=== PATIENT | female | born 1990 | race Caucasian/White ===

== ENCOUNTER → 2018-04-19 | Outpatient (CLI) | payer OTHER ==
[2018-04-19 15:57] LABS: HCT 35.4 % (34.0-46.0); HGB 12.3 gm/dL (11.4-16.0); MCH 32.1 pg (25.0-35.0); MCHC 34.8 g/dL (31.0-37.0); MCV 92.3 fL (80.0-100.0); Mean Platelet Volume 7.6; Platelet Count 201 k/uL (150-450); RBC 3.84 m/uL (3.80-5.40); RDW 13.7 % (11.5-15.5); WBC 10.7 k/uL (3.8-10.6)
[2018-04-19 16:12] LABS: Glucose 78 mg/dL (74-99)
[2018-04-20 02:05] LABS: HIV AB P24 Non-Reactive (Non-Reactive); HIV P24 AG Non-Reactive (Non-Reactive)
[2018-04-20 08:28] LABS: Toxoplasma Antibody (IgG) <3.0 IU/mL (<7.2); Toxoplasma Antibody (IgM) <3.0 AU/mL (<8.0)
== END | disposition home or self-care (01) ==
LOC: LABWHC1 15:36
PROVIDERS: ATTEND Obstetrics & Gynecology
DX: O26.812 Pregnancy related exhaustion and fatigue, second trimester (principal); Z3A.00 Weeks of gestation of pregnancy not specified
CPT/HCPCS: 36415; 82565; 82947; 85027; 86762; 86777; 86778; 86780; 86850; 86900; 86901; 87340; 87390

== ENCOUNTER → 2018-05-21 | Outpatient (CLI) | payer OTHER ==
[2018-05-21 14:02] LABS: HCT 33.2 % (34.0-46.0); HGB 11.4 gm/dL (11.4-16.0); MCH 32.2 pg (25.0-35.0); MCHC 34.3 g/dL (31.0-37.0); MCV 93.9 fL (80.0-100.0); Mean Platelet Volume 7.8; Platelet Count 175 k/uL (150-450); RBC 3.54 m/uL (3.80-5.40); RDW 13.1 % (11.5-15.5); WBC 12.8 k/uL (3.8-10.6)
== END | disposition home or self-care (01) ==
LOC: LABWHC1 12:29
PROVIDERS: ATTEND Obstetrics & Gynecology
DX: Z34.82 Encounter for supervision of other normal pregnancy, second trimester (principal); Z3A.00 Weeks of gestation of pregnancy not specified
CPT/HCPCS: 36415; 82950; 85027

== ENCOUNTER 2018-07-10 12:01 | Observation (INO) | payer OTHER ==
[2018-07-10] MEDS: LACTATED RINGERS 1,000 ML IV SCH ×3 (13:16→20:00)
[2018-07-10] MEDS: BETAMET ACET-BETAMETH SOD PHOS 6 MG/ML VIAL IM SCH (14:38)
[2018-07-10 15:00] LABS: Appearance,Urine Clear (Clear); Bacteria,Urine Rare /hpf; Bilirubin,Urine Negative (Negative); Blood,Urine Negative (Negative); Color,Urine Light Yellow; Glucose,Urine (UA) Negative (Negative); Ketones,Urine 1+ (Negative); Leukocyte Esterase,Urine Small (Negative); Mucus,Urine Rare /hpf; Nitrite,Urine Negative (Negative); Protein,Urine Negative (Negative); RBC,Urine <1 /hpf (0-5); Specific Gravity,Urine 1.006 (1.001-1.035); Squamous Epithelial Cell,Urine 1 /hpf (0-4); Urobilinogen,Urine <2.0 mg/dL (<2.0)
[2018-07-10] MEDS ORDERED: CALCIUM CARBONATE 500 MG CHEWABLE PO PRN (17:03)
[2018-07-10] MEDS ORDERED: ACETAMINOPHEN TAB 325 MG TAB PO PRN (17:03)
[2018-07-10] MEDS ORDERED: METOCLOPRAMIDE 5 MG/ML 2 ML VIAL IVP PRN (17:03)
[2018-07-10] MEDS ORDERED: MAG HYDROX/AL HYDROX/SIMETH 30 ML CUP PO PRN (17:03)
--- NOTE | 2018-07-10 17:14 | P.HPOB ---
History of Present Illness H&P Date: 07/10/18 Chief Complaint: Contractions This is a 27-year-old female 2 para 1 with an estimated date of confinement of 09/05/2018, estimated gestational age of 32 weeks, who presents to labor and delivery with complaints of contractions since early this morning. She states they started about 6:40 AM and have continued despite laying down and drinking fluids. She did vomit up her vitamins morning. This is the first time she vomited. She did state she has felt a little hot and cold today. She did state she had recently treated for a urinary tract infection. Upon arrival to triage she did also complain of possible leakage of fluid. Her amnisure was negative. fibronectin was collected and was also negative. She was given fluid in triage and did not make any cervical change despite several hours. However her contractions have continued every 2-4 minutes. She does have a history of delivery at 36 weeks and therefore I will admit her for IV hydration and Celestone 2 doses. I will also obtain a obstetrical ultrasound for growth. labs: Hepatitis B surface antigen-negative nonreactive Rubella-immune Syphilis antibody-nonreactive HIV-nonreactive Toxoplasma-negative Random glucose-78 Hemoglobin-12.3 Blood type-O+ Antibody screen-negative Obstetrical history: . History of 1 vaginal delivery at 36-6/7 weeks with no prior history of labor before that time. Gynecologic history: No history of sexual transmitted diseases. Review of Systems Constitutional: Reports chills, Reports malaise Eyes: denies blurred vision, denies pain Ears, nose, mouth and throat: Denies headache, Denies sore throat Cardiovascular: Denies chest pain, Denies shortness of breath Respiratory: Denies cough Gastrointestinal: Reports abdominal pain (Contractions) Genitourinary: Reports pelvic pain, Reports Musculoskeletal: Reports low back pain Neurological: Denies numbness, Denies weakness Psychiatric: Denies anxiety, Denies depression Past Medical History Past Medical History: Asthma History of Any Multi-Drug Resistant Organisms: None Reported Additional Past Surgical History / Comment(s): [place] teeth Past Psychological History: No Psychological Hx Reported Smoking Status: Never smoker Past Alcohol Use History: None Reported Past Drug Use History: None Reported Medications and Allergies Home Medications Medication Instructions Recorded Confirmed Type Albuterol Inhaler [Ventolin Hfa 2 puff INHALATION QID PRN 06/23/14 07/10/18 History Inhaler] Allergies Allergy/AdvReac Type Severity Reaction Status Date / Time No Known Allergies Allergy Verified 07/10/18 12:38 Exam Osteopathic Statement: *. No significant issues noted on an osteopathic structural exam other than those noted in the History and Physical/Consult. Intake and Output 07/10/18 07/10/18 07/10/18 06:59 14:59 22:59 Other: Weight 68.039 kg HEENT: Within normal limits Heart: Regular rate and rhythm Lungs: Clear to auscultation bilaterally Abdomen: Cervix: 1-1/2 cm/thick/-2 station heart tones: Reactive Contractions: Every 2-4 minutes Extremities: Negative Homans Results Abnormal Lab Results - Last 24 Hours (Table) 07/10/18 Range/Units 14:43 Urine Ketones 1+ H (Negative) Ur Leukocyte Esterase Small H (Negative) Urine Bacteria Rare H (None) /hpf Urine Mucus Rare H (None) /hpf Assessment and Plan (1) labor in third trimester without delivery Current Visit: Yes Status: Acute Code(s): O60.03 - LABOR WITHOUT DELIVERY, THIRD TRIMESTER SNOMED Code(s): 4129627 (2) uterine contractions in third trimester, antepartum Current Visit: Yes Status: Acute Code(s): O47.03 - FALSE LABOR BEFORE 37 COMPLETED WEEKS OF GEST, THIRD TRI SNOMED Code(s): 641136751 Plan: Will admit for observation and hydration. Will obtain obstetrical ultrasound. Will give Celestone 2 doses. If she does start to make cervical change, will consider transfer to maternal medicine.
--- NOTE | 2018-07-10 19:04 | US ---
EXAMINATION TYPE: US OB >= 14 wk fetus DATE OF EXAM: 07/10/2018 COMPARISON: None CLINICAL HISTORY: labor Patient states having contractions and dilated to 1 cm. TECHNIQUE: Transabdominal (TA) GESTATIONAL AGE / DATING Physician Established: (32 weeks/0 days) EDC: 09/04/2018 Dates by Current Scan: (21 weeks/4 days) EDC: 09/07/2018 SURVEY IUP: Single PLACENTA: Posterior PREVIA: No Previa APRYL: 20.4 cm Polyhydramnios CERVICAL LENGTH (transabdominal: norm > 3.0cm): 3.3 cm BIOMETRY PRESENTATION: Vertex BPD: 8.1 cm 32 weeks / 3 days HC: 29.7 cm 32 weeks / 6 days AC: 28.1 cm 32 weeks / 1 days FL: 5.9 cm 31 weeks / 0 days ESTIMATED WEIGHT IN GRAMS: 1856 grams ESTIMATED WEIGHT IN LBS/OZ: 4 lbs. 1 oz. WEIGHT PERCENTAGE BASED ON ESTABLISHED DATES: 34.7% HC/AC: 1.1 Normal FL/AC: 21.2 Normal HEART RATE: 167 bpm RHYTHM: Normal Single live IUP measuring 31 weeks 4 days. . IMPRESSION: There is amniotic fluid upper limit of normal. I do not see evidence for polyhydramnios. anatom y was not evaluated on this exam. No complicating process seen.
[2018-07-10 19:14] VITALS: BMI 25.7
[2018-07-11 02:10] VITALS: BP 127/57; PULSE 77; RESP 16; TEMP 98.5
--- NOTE | 2018-07-11 09:51 | P.PN ---
Progress Note - Text Progress Note Date: 07/11/18 Lauren is seen and evaluated. Overall this morning she is doing much better. She relates the contractions began the space back out and she is having very irregularly now. Earlier. She was wondering why she was not started any medications. I did explain fibronectin and risks of labor. We did discuss possibly start her on Procardia but she at this time refuses to go on any medication for the contractions despite being wanting to be on something earlier in the day. We'll watch her very closely today she was to receive second dose of Celestone at approximately 2:30 this afternoon and the plan will be to discharge her to home. All the questions are answered for her at this time.
[2018-07-11] MEDS: LACTATED RINGERS 1,000 ML IV SCH ×2 (11:23→17:28)
[2018-07-11] MEDS ORDERED: PRENATAL VIT-IRON-FOLIC ACID 1 EACH CAP PO SCH (12:00)
[2018-07-11] MEDS: BETAMET ACET-BETAMETH SOD PHOS 6 MG/ML VIAL IM SCH (14:33)
== END 2018-07-11 17:00 | disposition home or self-care (01) ==
LOC: FBPOP 12:01 → 4FBP 17:08
PROVIDERS: ADMIT Obstetrics & Gynecology; ATTEND Obstetrics & Gynecology
DX: O60.03 Preterm labor without delivery, third trimester (principal); Z3A.32 32 weeks gestation of pregnancy; O99.513 Diseases of the respiratory system complicating pregnancy, third trimester; J45.909 Unspecified asthma, uncomplicated; Z87.51 Personal history of pre-term labor
CPT/HCPCS: 59025; 96372 ×2; 93005; 82731; 81001; 76805; G0463; G0378 ×2; J0702 ×2; 96360; 96361; 99214

== ENCOUNTER 2018-07-30 19:11 | Outpatient (CLI) | payer OTHER ==
[2018-07-30 20:39] VITALS: BP 138/69; PULSE 101; RESP 16; TEMP 97.8
--- NOTE | 2018-08-16 08:45 | P.MSEPDOC ---
Presenting Problems - Arrival Data Date of Arrival on Unit: 07/30/18 Time of Arrival on Unit: 19:14 Mode of Transport: Wheelchair - Complaint OB-Reason for Admission/Chief Complaint: Other Comment: pt checked herself, states shes 4cm, hx of PTL Medical History - Information : 2 Para: 1 Term: 0 : 1 Abortions: Spontaneous or Elective: 0 Number of Living Children: 1 - Gestational Age Gestational Age by RANDAL (wks/days): 34 Weeks and 5 Days - History Complications: Prior Comment: 1st delivery at 36wks, PTL at 32 weeks with this Review of Systems - Review of Systems Constitutional: No problems Breast: No problems ENT: No problems Cardiovascular: No problems Respiratory: No problems Gastrointestinal: No problems Genitourinary: No problems Musculoskeletal: No problems Neurological: No problems Skin: No problems Vital Signs - Temperature Temperature: 97.8 F Temperature Source: Temporal Artery Scan - Pulse Right Pulse Rate: 101 Pulse Assessment Method: Pulse Oximetry - Respirations Respiratory Rate: 16 O2 Sat by Pulse Oximetry: 98 - Blood Pressure Right Arm Blood Pressure: 138/69 Blood Pressure Mean: 92 Blood Pressure Source: Automatic Cuff Medical Screen Scoring (Pre) - Cervical Exam Dilation: 1-3 cm = 1 Membranes: Intact - Uterine Contractions Frequency: N/A Duration: N/A Intensity: N/A - Maternal Vital Signs Maternal Temperature: N/A Maternal Blood Pressure: N/A Signs of Preeclampsia: N/A Maternal Respirations: N/A - Pain Assessment Pain Location and Character: Abdomen Pain Scale Used: Numeric (1 - 10) Pain Intensity: 4 Pain Management Goal: 3 Pain Description: *Acute, Aching, Sore Pain Frequency: Intermittent Pain Duration: 1 Pain Duration Units: Days Pain Behavior: Vocalization Pain Aggravating Factors: None Pharmacological Interventions: PRN Medication Non-Pharmacological Interventions: Position/Reposition - Assessment Baseline FHR: 150 Heart Rate - NICHD Category: Category I (Normal) = 0 NST: Reactive Position: N/A Station: N/A - Total Score Total Score (Pre): 1 - Level of Risk Level of Risk: Low (0-5) Physician Notification (Pre) - Physician Notified Physician Notified Date: 07/30/18 Physician Notified Time: 19:46 Physician/Practitioner Notifed:: Dr Westfall - Notification Comment Comment: reported on pts c/o that she checked herself and she was 4cm, hx PTL with this , 36wk delivery with 1st baby. denies any bleeding or leaking , occasional cntrx throughout the day. orders to d/c home with instructions, keep scheduled appt in office, review reasons not to check herself. Disposition - Disposition OB Disposition: Discharge to home Discharge Date: 07/30/18 Discharge Time: 19:52 I agree with the RN Medical Screening Exam: Yes Risk & Benefit of care provided described in d/c instruction: Yes Diagnosis: FALSE LABOR BEFORE 37 COMPLETED WEEKS OF GEST, THIRD TRI
== END 2018-07-30 19:55 | disposition home or self-care (01) ==
LOC: FBPOP 19:11
PROVIDERS: ATTEND Obstetrics & Gynecology
DX: O47.03 False labor before 37 completed weeks of gestation, third trimester (principal); Z3A.34 34 weeks gestation of pregnancy
CPT/HCPCS: 59025; G0463; 99213

== ENCOUNTER 2018-08-12 20:14 | Outpatient (CLI) | payer OTHER ==
[2018-08-12 20:40] VITALS: BP 131/80; PULSE 92; RESP 16; TEMP 97.2
--- NOTE | 2018-08-16 07:27 | P.MSEPDOC ---
Presenting Problems - Arrival Data Date of Arrival on Unit: 08/12/18 Time of Arrival on Unit: 20:14 Mode of Transport: Ambulatory - Complaint OB-Reason for Admission/Chief Complaint: Possible Onset of Labor Medical History - Information : 2 Para: 1 Term: 1 : 0 Abortions: Spontaneous or Elective: 0 Number of Living Children: 1 - Gestational Age Gestational Age by RANDAL (wks/days): 36 Weeks and 5 Days Review of Systems - Review of Systems Constitutional: No problems Breast: No problems ENT: No problems Cardiovascular: No problems Respiratory: No problems Gastrointestinal: No problems Genitourinary: No problems Musculoskeletal: No problems Neurological: No problems Skin: No problems Vital Signs - Temperature Temperature: 97.2 F Temperature Source: Temporal Artery Scan - Pulse Right Brachial Pulse Rate: 92 Pulse Assessment Method: Automatic Cuff - Respirations Respiratory Rate: 16 Oxygen Delivery Method: Room Air O2 Sat by Pulse Oximetry: 98 - Blood Pressure Right Arm Blood Pressure: 131/80 Blood Pressure Mean: 97 Blood Pressure Source: Automatic Cuff Medical Screen Scoring (Pre) - Cervical Exam Dilation: 1-3 cm = 1 Membranes: Intact - Uterine Contractions Frequency: > 5 minutes apart = 1 Duration: N/A Intensity: N/A - Maternal Vital Signs Maternal Temperature: N/A Maternal Blood Pressure: N/A Signs of Preeclampsia: N/A Maternal Respirations: N/A - Pain Assessment Pain Location and Character: Abdomen Pain Scale Used: Numeric (1 - 10) Pain Intensity: 9 Pain Description: *Acute, Cramping Pain Frequency: Intermittent Pain Duration Units: Minutes Pain Behavior: Facial Grimacing Pain Aggravating Factors: Contractions - Assessment Baseline FHR: 155 Heart Rate - NICHD Category: Category I (Normal) = 0 NST: Reactive Position: N/A Station: N/A - Total Score Total Score (Pre): 2 - Level of Risk Level of Risk: Low (0-5) Physician Notification (Pre) - Physician Notified Physician Notified Date: 08/12/18 Physician Notified Time: 20:29 Physician/Practitioner Notifed:: Dr. Patino Spoke With: Dr. Patino New Order Received: Yes - Notification Comment Comment: Dr. Patino in unit and given report on pt in tr. Orders recieved to recheck pt. after 1 hr and to call with results Disposition - Disposition Discharge Date: 08/12/18 Discharge Time: 21:40 I agree with the RN Medical Screening Exam: Yes Risk & Benefit of care provided described in d/c instruction: Yes Diagnosis: FALSE LABOR BEFORE 37 COMPLETED WEEKS OF GEST, THIRD TRI
== END 2018-08-12 21:40 | disposition home or self-care (01) ==
LOC: FBPOP 20:14
PROVIDERS: ATTEND Obstetrics & Gynecology
DX: O47.03 False labor before 37 completed weeks of gestation, third trimester (principal); Z3A.36 36 weeks gestation of pregnancy
CPT/HCPCS: 59025; G0463; 99213

== ENCOUNTER 2018-08-13 22:29 | Outpatient (CLI) | payer OTHER ==
[2018-08-13 22:58] VITALS: BP 129/78; PULSE 88; RESP 18; TEMP 97.7
[2018-08-14 00:40] LABS: Amphetamine Screen,Urine Not Detected (NotDetected); Barbiturate Screen,Urine Not Detected (NotDetected); Benzodiazepines Screen,Urine Not Detected (NotDetected); Cocaine Screen,Urine Not Detected (NotDetected); Methadone Screen, Urine Not Detected (NotDetected); Opiate Screen,Urine Not Detected (NotDetected); Oxycodone Screen, Urine Not Detected (NotDetected); Phencyclidine Screen,Urine Not Detected (NotDetected); Tricyclic Antidepressant,Urine Not Detected (NotDetected); Urn Cannabinoid Scrn Detected (NotDetected)
--- NOTE | 2018-08-14 01:29 | P.MSEPDOC ---
Presenting Problems - Arrival Data Date of Arrival on Unit: 08/13/18 Time of Arrival on Unit: 22:29 Mode of Transport: Ambulatory - Complaint OB-Reason for Admission/Chief Complaint: Possible Onset of Labor Comment: 2030 2 min apart Medical History - Information : 2 Para: 1 Term: 0 : 1 Abortions: Spontaneous or Elective: 0 Number of Living Children: 1 - Gestational Age Gestational Age by RANDAL (wks/days): 36 Weeks and 5 Days - History Complications: Prior Review of Systems - Review of Systems Constitutional: No problems Breast: No problems ENT: No problems Cardiovascular: No problems Respiratory: No problems Gastrointestinal: No problems Genitourinary: No problems Musculoskeletal: No problems Neurological: No problems Skin: No problems Vital Signs - Temperature Temperature: 97.7 F Temperature Source: Temporal Artery Scan - Pulse Right Brachial Pulse Rate: 88 Pulse Assessment Method: Automatic Cuff - Respirations Respiratory Rate: 18 Oxygen Delivery Method: Room Air - Blood Pressure Right Arm Blood Pressure: 129/78 Blood Pressure Mean: 95 Blood Pressure Source: Automatic Cuff Medical Screen Scoring (Pre) - Cervical Exam Dilation: 1-3 cm = 1 Effacement: More than 50% = 2 Membranes: Intact - Uterine Contractions Frequency: > or = 36 weeks =2 Duration: > 40 seconds = 2 Intensity: N/A - Maternal Vital Signs Maternal Temperature: N/A Maternal Blood Pressure: N/A Signs of Preeclampsia: N/A Maternal Respirations: N/A - Pain Assessment Pain Location and Character: Abdomen Pain Scale Used: Numeric (1 - 10) Pain Intensity: 9 Pain Description: *Acute, Tightness Pain Radiation Location: vaginal Pain Frequency: Intermittent Pain Duration: 2 Pain Duration Units: Hours Pain Behavior: Crying, Facial Grimacing, Guarding Pain Aggravating Factors: Contractions - Maternal Trauma Maternal Trauma: N/A - Assessment Baseline FHR: 145 Heart Rate - NICHD Category: Category I (Normal) = 0 NST: Reactive Position: N/A Station: N/A - Total Score Total Score (Pre): 7 - Level of Risk Level of Risk: Medium (6-9) Medical Screen Scoring (Post) - Cervical Exam Dilation: 1-3 cm = 1 Effacement: More than 50% = 2 Membranes: Intact - Uterine Contractions Frequency: > or = 36 weeks =2 Duration: > 40 seconds = 2 Intensity: N/A - Assessment Heart Rate: 145 Heart Rate - NICHD Category: Category I (Normal) = 0 NST: Reactive Position: N/A Station: N/A - Total Score Total Score (Post): 7 - Post Treatment Level of Risk Post Treatment Level of Risk: Medium (6-9) Physician Notification (Post) - Physician Notified Physician Notified Date: 08/14/18 Physician Notified Time: 00:13 Spoke With: Taniya Cobb Order Received: Yes (discharge with instruction) - Notification Comment Comment: no cervical change, concentrated urine, pt refuses to drink water, has appt with Khoi. Disposition - Disposition OB Disposition: Discharge to home, Written follow up instructions reviewed Discharge Date: 08/14/18 Discharge Time: 00:15 I agree with the RN Medical Screening Exam: Yes Risk & Benefit of care provided described in d/c instruction: Yes Diagnosis: FALSE LABOR AT OR AFTER 37 COMPLETED WEEKS OF GESTATION (Please see the oblique this patient's triage visit. patient presented complaining of contractions and had no cervical change despite persistent monitoring. patient doesn't appear to be dehydrated however states that she wants to be in labor and refuses to drink water. heart tones were reassuring and reactive. patient is instructed to return to labor and delivery if she felt the contractions were stronger more regular. of note her urine tox screen was positive for THC.)
== END 2018-08-14 00:15 | disposition home or self-care (01) ==
LOC: FBPOP 22:29
PROVIDERS: ATTEND Obstetrics & Gynecology
DX: O47.1 False labor at or after 37 completed weeks of gestation (principal); Z3A.36 36 weeks gestation of pregnancy
CPT/HCPCS: 59025; 84112; 80306; G0463; 99213

== ENCOUNTER 2018-08-18 14:13 | Inpatient (IN) | payer OTHER ==
[2018-08-18] MEDS ORDERED: METHYLERGONOVINE 0.2 MG/ML 1 ML AMP IM PRN (15:26)
[2018-08-18] MEDS ORDERED: CARBOPROST TROMETHAMINE 250 MCG/ML 1 ML AMP IM PRN (15:26)
[2018-08-18] MEDS ORDERED: OXYTOCIN 10 UNIT/ML 1 ML VIAL IM PRN (15:26)
[2018-08-18] MEDS ORDERED: TERBUTALINE 1 MG/ML VIAL SQ PRN (15:26)
[2018-08-18] MEDS ORDERED: LIDOCAINE 0.5% (PF) 5 MG/ML (50 ML SDV) SQ PRN (15:26)
[2018-08-18] MEDS: LACTATED RINGERS 1,000 ML IV SCH ×3 (15:55→20:19)
[2018-08-18 16:11] LABS: Basophils % (A) 0 %; Eosinophils % (A) 0 %; HCT 36.9 % (34.0-46.0); HGB 12.2 gm/dL (11.4-16.0); Lymphocytes # (A) 1.7 k/uL (1.0-4.8); Lymphocytes % (A) 10 %; MCH 28.9 pg (25.0-35.0); MCHC 33.1 g/dL (31.0-37.0); MCV 87.2 fL (80.0-100.0); Mean Platelet Volume 8.1; Monocytes # (A) 0.6 k/uL (0-1.0); Monocytes % (A) 3 %; Neutrophils # (A) 14.6 k/uL (1.3-7.7); Neutrophils % (A) 86 %; Platelet Count 200 k/uL (150-450); Poikilocytosis Slight; RBC 4.23 m/uL (3.80-5.40); RDW 14.2 % (11.5-15.5)
[2018-08-18 16:13] VITALS: BMI 26.6
[2018-08-18 16:20] LABS: Amphetamine Screen,Urine Not Detected (NotDetected); Barbiturate Screen,Urine Not Detected (NotDetected); Benzodiazepines Screen,Urine Not Detected (NotDetected); Cocaine Screen,Urine Not Detected (NotDetected); Methadone Screen, Urine Not Detected (NotDetected); Opiate Screen,Urine Not Detected (NotDetected); Oxycodone Screen, Urine Not Detected (NotDetected); Phencyclidine Screen,Urine Not Detected (NotDetected); Tricyclic Antidepressant,Urine Not Detected (NotDetected); Urn Cannabinoid Scrn Detected (NotDetected)
[2018-08-18] MEDS ORDERED: SODIUM CHLORIDE 0.9% 100 ML BAG ONE (17:43)
[2018-08-18] MEDS ORDERED: fentaNYL (PF) 50 MCG/ML 5 ML AMP ONE (17:43)
[2018-08-18] MEDS ORDERED: ROPIVACAINE 5MG/ML 20ML VIAL ONE (17:43)
[2018-08-18] MEDS: OXYTOCIN 20 UNITS/1000 ML NS 1,000 ML IV SCH (19:30)
--- NOTE | 2018-08-18 21:38 | P.HPOB ---
History of Present Illness H&P Date: 08/18/18 Chief Complaint: Normal labor 27-year-old presents at 37 weeks and 3 days and labor. Her cervix changed in triage from 4 cm to 5 cm dilated, 50% effaced, and -2 station. She was luisana every 2-5 minutes. heart tones 130 135 with moderate variability and reactive. Review of Systems All systems: negative Constitutional: Denies chills, Denies fever Eyes: denies blurred vision, denies pain Ears, nose, mouth and throat: Denies headache, Denies sore throat Cardiovascular: Denies chest pain, Denies shortness of breath Respiratory: Denies cough Gastrointestinal: Denies abdominal pain, Denies diarrhea, Denies nausea, Denies vomiting Genitourinary: Denies dysuria, Denies hematuria Musculoskeletal: Denies myalgias Integumentary: Denies pruritus, Denies rash Neurological: Denies numbness, Denies weakness Psychiatric: Denies anxiety, Denies depression Endocrine: Denies fatigue, Denies weight change Past Medical History Past Medical History: Asthma Additional Past Medical History / Comment(s): back pain from epidural 5 months ago. Obstetric history: First was a vaginal delivery. This is her second and she's had care with Dr. Sorto. Her blood type is O+, abs negative, rubella immune, hepatitis B negative, GBS negative, HIV nonreactive. History of Any Multi-Drug Resistant Organisms: None Reported Past Surgical History: No Surgical Hx Reported Additional Past Surgical History / Comment(s): [place] teeth Past Anesthesia/Blood Transfusion Reactions: No Reported Reaction Past Psychological History: No Psychological Hx Reported Smoking Status: Never smoker Past Alcohol Use History: None Reported Past Drug Use History: Marijuana - Past Family History Mother Family Medical History: No Reported History Medications and Allergies Home Medications Medication Instructions Recorded Confirmed Type RX: Albuterol Inhaler [Ventolin 2 puff INHALATION QID PRN 06/23/14 08/18/18 History Hfa Inhaler] Pnv,Calcium 72/Iron/Folic Acid 1 each PO DAILY 07/30/18 08/18/18 History [ Plus Tablet] Allergies Allergy/AdvReac Type Severity Reaction Status Date / Time No Known Allergies Allergy Verified 08/18/18 14:28 Exam Osteopathic Statement: *. No significant issues noted on an osteopathic structural exam other than those noted in the History and Physical/Consult. Vital Signs Temp Pulse Resp BP Pulse Ox 08/18/18 14:30 97.7 F 120 H 18 120/83 99 Intake and Output 08/18/18 08/18/18 08/18/18 06:59 14:59 22:59 Other: Weight 70.307 kg 70.307 kg Heart: Regular rate and rhythm Lungs: Clear to auscultation bilaterally Abdomen: Soft, nontender Extremities: Negative Homans sign Results Result Diagrams: 08/18/18 15:49 Abnormal Lab Results - Last 24 Hours (Table) 08/18/18 08/18/18 Range/Units 15:45 15:49 WBC 17.0 H (3.8-10.6) k/uL Neutrophils # 14.6 H (1.3-7.7) k/uL U Marijuana (THC) Screen Detected H (NotDetected) Assessment and Plan (1) Normal labor Current Visit: Yes Status: Acute Code(s): O80 - ENCOUNTER FOR FULL-TERM UNCOMPLICATED DELIVERY; Z37.9 - OUTCOME OF DELIVERY, UNSPECIFIED SNOMED Code(s ): 04185979 Plan: 1. Admit to family place 2. Expectant management 3. Anticipate normal vaginal delivery
[2018-08-18] MEDS ORDERED: diphenhydrAMINE 50 MG/ML 1 ML VIAL IVP PRN ×2 (21:40)
[2018-08-18] MEDS ORDERED: ZOLPIDEM 5 MG TAB PO PRN (21:40)
[2018-08-18] MEDS ORDERED: LANOLIN CREAM 5 GM TUBE TOPICAL PRN (21:40)
[2018-08-18] MEDS ORDERED: diphenhydrAMINE 25 MG CAP PO PRN (21:40)
[2018-08-18] MEDS ORDERED: BENZOCAINE/MENTHOL SPRAY 1 GM/SPRAY AEROSOL TOPICAL PRN (21:40)
[2018-08-18] MEDS ORDERED: SIMETHICONE 80 MG CHEWABLE PO PRN (21:40)
[2018-08-18] MEDS ORDERED: diphenhydrAMINE 50 MG CAP PO PRN (21:40)
[2018-08-18] MEDS ORDERED: HYDROCORTISONE 2.5% RECTAL CREAM 30 GM TUBE RECTAL PRN (21:40)
--- NOTE | 2018-08-18 21:40 | P.PROBDLV ---
Vaginal Delivery Note - . Vaginal Delivery Note: 27-year-old presents at 37 weeks and 3 days and labor. Her cervix changed in triage from 4 cm to 5 cm dilated, 50% effaced, and -2 station. She was luisana every 2-5 minutes. heart tones 130 135 with moderate variability and reactive. When she was admitted to room she did get an epidural. Amniotomy was performed at 1820, clear fluid noted. After an hour her cervix did not change and contractions had spaced out to every 3-5 minutes, Pitocin augmentation was started. Her cervix was completely dilated at 2120, she pushed, and delivered a viable male infant over intact perineum under epidural anesthesia at 2124. Head delivered OA, anterior shoulder delivered gentle downward guidance followed by posterior shoulder and rest of body. Nose and mouth bulb suctioned, cord clamped and cut, placed on mother's abdomen. Apgars 7, 9, weight 6 pounds. Placenta delivered spontaneously, intact with three-vessel cord at 2126. Vagina, cervix, and perineum were inspected. First-degree midline laceration was repaired with 3-0 Vicryl. Estimated blood loss 150 mL. Mother and baby in stable condition.
[2018-08-18] MEDS ORDERED: OXYTOCIN 20 UNITS/1000 ML NS 1,000 ML IV SCH (21:45)
[2018-08-18] MEDS: WITCH HAZEL 1 EACH MED..PAD TOPICAL PRN (21:49)
[2018-08-19] MEDS: ACETAMINOPHEN TAB 325 MG TAB PO PRN ×2 (01:01→16:33)
[2018-08-19] MEDS: IBUPROFEN 600 MG TAB PO PRN ×2 (02:32→12:45)
[2018-08-19] MEDS: SENNOSIDES-DOCUSATE SODIUM 1 EACH TAB PO SCH ×2 (08:00→21:21)
--- NOTE | 2018-08-19 08:53 | P.DS ---
Providers Date of admission: 08/18/18 15:27 Expected date of discharge: 08/19/18 Attending physician: Kelechi Westfall Primary care physician: Stated None Hospital Course: Lauren is doing very well day 1. She is ambulating, voiding, and she is tolerating her diet. She voices no were complaints and requests discharged home tonight. Prescription for Motrin sent to her pharmacy. All the questions are answered for her prior to discharge. She is stable for discharge this time. Her heart is regular, lungs are clear, extremities are without pain with minimal edema. Abdomen soft lochia is reported be light, and uterus is firm below the umbilicus. Assessment day 1. Plan discharged home follow up with me in 6 weeks. Patient Condition at Discharge: Good Plan - Discharge Summary New Discharge Prescriptions: New Ibuprofen [Motrin] 600 mg PO Q6HR PRN #30 tab PRN Reason: Pain No Action Albuterol Inhaler [Ventolin Hfa Inhaler] 2 puff INHALATION QID PRN PRN Reason: Bronchospasm Pnv,Calcium 72/Iron/Folic Acid [ Plus Tablet] 1 each PO DAILY Discharge Medication List Albuterol Inhaler [Ventolin Hfa Inhaler] 2 puff INHALATION QID PRN 06/23/14 [ History] Pnv,Calcium 72/Iron/Folic Acid [ Plus Tablet] 1 each PO DAILY 07/30/18 [ History] Ibuprofen [Motrin] 600 mg PO Q6HR PRN #30 tab 08/19/18 [Rx] Follow up Appointment(s)/Referral(s): Kelechi Westfall DO [Doctor of Osteopathic Medicine] - 6 Weeks Activity/Diet/Wound Care/Special Instructions: No heavy lifting, limit stairs and driving, and pelvic rest. If any high temperatures, heavy bleeding, or severe pain call my office Discharge Disposition: HOME SELF-CARE
[2018-08-19 17:31] VITALS: BP 122/78; PULSE 80; RESP 16; TEMP 97.9
[2018-08-19] MEDS: OXYTOCIN 20 UNITS/1000 ML NS 1,000 ML IV SCH (20:02)
[2018-08-19] MEDS: WITCH HAZEL 1 EACH MED..PAD TOPICAL PRN (21:21)
== END 2018-08-19 22:04 | disposition home or self-care (01) | DRG 807 ==
LOC: FBPOP 14:13 → 4FBP 15:27
PROVIDERS: ADMIT Obstetrics & Gynecology; ATTEND Obstetrics & Gynecology
PROC: 10E0XZZ Delivery of Products of Conception, External Approach (ICD-10-PCS; principal; 2018-08-18)
PROC: 0HQ9XZZ Repair Perineum Skin, External Approach (ICD-10-PCS; 2018-08-18)
PROC: 00HU33Z Insertion of Infusion Device into Spinal Canal, Percutaneous Approach (ICD-10-PCS; 2018-08-18)
PROC: 3E0R3BZ Introduction of Anesthetic Agent into Spinal Canal, Percutaneous Approach (ICD-10-PCS; 2018-08-18)
DX: O99.52 Diseases of the respiratory system complicating childbirth (principal); Z37.0 Single live birth; J45.909 Unspecified asthma, uncomplicated; O70.0 First degree perineal laceration during delivery; Z3A.37 37 weeks gestation of pregnancy
CPT/HCPCS: 59025; 80306; 85025; 86850; 86900; 86901; 99213

== ENCOUNTER → 2018-10-31 | Outpatient (CLI) | payer OTHER ==
[2018-10-31 15:04] LABS: Basophils % (A) 0 %; Eosinophils # (A) 0.1 k/uL (0-0.7); Eosinophils % (A) 1 %; HCT 39.9 % (34.0-46.0); Lymphocytes # (A) 1.7 k/uL (1.0-4.8); Lymphocytes % (A) 21 %; MCH 28.5 pg (25.0-35.0); MCHC 32.6 g/dL (31.0-37.0); MCV 87.4 fL (80.0-100.0); Mean Platelet Volume 6.9; Monocytes # (A) 0.4 k/uL (0-1.0); Monocytes % (A) 5 %; Neutrophils # (A) 5.7 k/uL (1.3-7.7); Neutrophils % (A) 71 %; Platelet Count 223 k/uL (150-450); RBC 4.57 m/uL (3.80-5.40); RDW 13.9 % (11.5-15.5)
== END | disposition home or self-care (01) ==
LOC: LABPAT 13:46
PROVIDERS: ATTEND Obstetrics & Gynecology
DX: Z01.812 Encounter for preprocedural laboratory examination (principal)
CPT/HCPCS: 36415; 85025

== ENCOUNTER 2018-11-04 05:52 | Day surgery (SDC) | payer OTHER ==
[2018-10-30 15:31] VITALS: BMI 24.0
[~2018-11-04 05:52] MED LIST: Pre Op ABX Message 1 EACH MISC MISCELLANE ONE
[2018-11-04] MEDS ORDERED: ONDANSETRON 4 MG/2 ML VIAL IVP ONE (06:25)
[2018-11-04] MEDS ORDERED: LACTATED RINGERS 1,000 ML IV SCH (06:25)
[2018-11-04] MEDS ORDERED: SCOPOLAMINE 1.5MG/72HR PATCH TRANSDERM ONE (06:25)
[2018-11-04] MEDS ORDERED: DEXAMETHASONE SOD PHOSPHATE 10 MG/ML 1 ML VIAL IV ONE (06:25)
[2018-11-04] MEDS ORDERED: MIDAZOLAM (PF) 2 MG/2 ML VIAL IV PRN (06:25)
[2018-11-04] MEDS ORDERED: LACTATED RINGERS 1,000 ML IV ONE (06:52)
[2018-11-04] MEDS ORDERED: LIDOCAINE 1% 20 ML VIAL (10MG/ML) FOR IV START INTRADERMA ONE (06:54)
[2018-11-04] MEDS ORDERED: MIDAZOLAM 2 MG/2 ML VIAL ONE (07:41)
[2018-11-04] MEDS ORDERED: SUCCINYLCHOLINE CHLORIDE 100 MG/5 ML SYR IV ONE (07:41)
[2018-11-04] MEDS ORDERED: NEOSTIGMINE 1 MG/ML 10 ML VIAL ONE (07:41)
[2018-11-04] MEDS ORDERED: LIDOCAINE 1% INJ 10MG/ML (20 ML MDV) ONE (07:41)
[2018-11-04] MEDS ORDERED: fentaNYL (PF) 50 MCG/ML 2 ML AMP ONE (07:41)
[2018-11-04] MEDS ORDERED: GLYCOPYRROLATE 0.2 MG/ML 2 ML VIAL ONE (07:41)
[2018-11-04] MEDS ORDERED: KETOROLAC 30 MG/ML 1 ML VIAL ONE (07:41)
[2018-11-04] MEDS ORDERED: PROPOFOL 10 MG/ML 20 ML VIAL IV ONE (07:41)
[2018-11-04] MEDS ORDERED: ROCURONIUM BROMIDE 10 MG/ML 10 ML VIAL IV ONE (07:41)
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
[2018-11-04] MEDS ORDERED: BUPIVACAINE (PF) 0.25% 30 ML VIAL SQ ONE (08:05)
--- NOTE | 2018-11-04 08:17 | P.OP ---
Date of Procedure: 11/04/18 Preoperative Diagnosis: Family planning Postoperative Diagnosis: Same Procedure(s) Performed: Laparoscopic tubal occlusion with Filshie clips Anesthesia: POOL Surgeon: Kelechi Westfall Estimated Blood Loss (ml): 5 IV fluids (ml): 500 Urine output (ml): 20 Pathology: none sent Condition: stable Disposition: same day Operative Findings: Normal female pelvic anatomy Description of Procedure: Patient states the operating suite where a general anesthetic was found be adequate. She was prepped and draped in the normal sterile fashion and placed in dorsal lithotomy position. Initially a speculum was inserted into the vagina and the anterior lip of the cervix identified and grasped with a single- tooth tenaculum. Red rubber cath was then used to drain the bladder of urine and other instruments removed from the vagina. Gloves were changed and attention was turned to the abdominal portion procedure where 2 mL of quarter percent Marcaine was injected periumbilically. Through this injected anesthetic a 5 mm skin incision was made and through this incision under direct visualization with an optical trocar and sleeve the camera was inserted. Once peritoneal placement was assured gas was left fully insufflate the abdomen and patient was then placed in steep Trendelenburg position. Second 8 mm skin incision was then made 2 cm above the pubic symphysis in the midline. Through this incision under direct visualization with an optical trocar second port and sleeve were inserted without difficulty. Once this was accomplished with gas fully insufflate the abdomen and attention was turned to the pelvic region. Uterus was then elevated and tipped slightly to the left-hand side right fallopian tubes identified and grasped with a Filshie clip 2 cm from uterine cornu and then tipped to the right side and left fallopian tube in similar fashion was identified grasped with Filshie clip 2 cm from uterine cornu. Once this was accomplished observations pelvis were done. Normal female pelvic anatomy is noted. There is no bleeding from the mesosalpinx. The remainder the pelvis and abdomen are grossly unremarkable therefore all instruments removed and gas allowed to expel from the abdomen. 5 deep breaths were provided during this process. Once this was accomplished trochars removed and 4 -0 Vicryl was used to close incision subcuticular E and remaining 6 mL of 1% Marcaine was injected around these incisions. Instruments were were then removed from the vagina. Sponge, lap, needle counts were all correct 2. Patient was then taken to the recovery room in stable and satisfactory condition. Plan - Discharge Summary New Discharge Prescriptions: No Action Albuterol Inhaler [Ventolin Hfa Inhaler] 2 puff INHALATION QID PRN PRN Reason: Bronchospasm Discharge Medication List Albuterol Inhaler [Ventolin Hfa Inhaler] 2 puff INHALATION QID PRN 06/23/14 [ History]
[2018-11-04] MEDS: HYDROmorphone 0.5 MG/0.5 ML SYRINGE IVP PRN ×3 (08:28→08:57)
[2018-11-04 08:32] VITALS: RESP 16; TEMP 97
[2018-11-04] MEDS ORDERED: HYDROcodone/APAP 5-325MG 1 EACH TAB PO ONE (09:28)
[2018-11-04 09:38] VITALS: BP 131/86; PULSE 65
== END 2018-11-04 10:33 | disposition home or self-care (01) ==
LOC: OR 05:52
PROVIDERS: ATTEND Obstetrics & Gynecology
DX: Z30.2 Encounter for sterilization (principal); J45.909 Unspecified asthma, uncomplicated; M19.90 Unspecified osteoarthritis, unspecified site; F41.9 Anxiety disorder, unspecified
CPT/HCPCS: 81025; 58671; J2250; J1100; J2710; J2405; J2001; J3010; J1885; J0330; J2704; J1170

== ENCOUNTER → 2020-05-05 | Outpatient (CLI) | payer OTHER ==
--- NOTE | 2020-05-06 07:06 | US ---
EXAMINATION TYPE: US pelvic complete DATE OF EXAM: 05/05/2020 COMPARISON: US 2013 CLINICAL HISTORY: R10.2 pelvic pain, N93.8 Dysfuntional bleeding. Patients states she had a tubal lig ation about 7 months ago and has had pelvic pain on and off since then, 2, para 2. TECHNIQUE: . Transabdominal sonographic images of the pelvis were acquired. Date of LMP: 04/24/2020 EXAM MEASUREMENTS: Uterus: 8.9 x 4.8 x 5.2 cm Endometrial Stripe: 1.2 cm Right Ovary: 3.7 x 2.3 x 2.4 cm Left Ovary: 3.2 x 1.3 x 1.6 cm 1. Uterus: anteverted 2. Endometrium: appears thickened for patient's LMP 3. Right Ovary: wnl 4. Left Ovary: wnl 5. Bilateral Adnexa: wnl 6. Posterior cul-de-sac: wnl IMPRESSION: 1. Endometrium measures 1.2 cm and appears thickened correlate for endometrial pathology.
== END | disposition home or self-care (01) ==
LOC: RADUSWWP 15:45
PROVIDERS: ATTEND Obstetrics & Gynecology
DX: R93.89 Abnormal findings on diagnostic imaging of other specified body structures (principal); N93.8 Other specified abnormal uterine and vaginal bleeding
CPT/HCPCS: 76856

== ENCOUNTER 2020-05-20 11:28 | Emergency (ER) | payer OTHER ==
[2020-05-20 11:42] VITALS: TEMP 98.1
[2020-05-20 12:05] LABS: Appearance,Urine Clear (Clear); Bacteria,Urine Rare /hpf; Bilirubin,Urine Negative (Negative); Blood,Urine Large (Negative); Color,Urine Light Yellow; Glucose,Urine (UA) Negative (Negative); Ketones,Urine Negative (Negative); Leukocyte Esterase,Urine Trace (Negative); Nitrite,Urine Negative (Negative); PH, Urine 6.5 (5.0-8.0); Protein,Urine Negative (Negative); RBC,Urine 1 /hpf (0-5); Specific Gravity,Urine 1.003 (1.001-1.035); Squamous Epithelial Cell,Urine 3 /hpf (0-4); Urobilinogen,Urine <2.0 mg/dL (<2.0); WBC,Urine 1 /hpf (0-5)
[2020-05-20 12:22] LABS: Basophils # (A) 0.1 k/uL (0-0.2); Basophils % (A) 1 %; Eosinophils # (A) 0.2 k/uL (0-0.7); Eosinophils % (A) 3 %; HGB 14.2 gm/dL (11.4-16.0); Lymphocytes # (A) 1.3 k/uL (1.0-4.8); Lymphocytes % (A) 19 %; MCH 30.7 pg (25.0-35.0); MCHC 33.1 g/dL (31.0-37.0); MCV 92.8 fL (80.0-100.0); Mean Platelet Volume 8.1; Monocytes # (A) 0.4 k/uL (0-1.0); Monocytes % (A) 6 %; Neutrophils # (A) 4.7 k/uL (1.3-7.7); Neutrophils % (A) 71 %; Platelet Count 211 k/uL (150-450); RBC 4.63 m/uL (3.80-5.40); RDW 12.3 % (11.5-15.5); WBC 6.6 k/uL (3.8-10.6)
[2020-05-20 12:31] LABS: ALT 11 U/L (4-34); AST 19 U/L (14-36); African American GFR (CKD) >90 (>60 ml/min/1.73 sqM); Albumin 4.5 g/dL (3.5-5.0); Alkaline Phosphatase 65 U/L (38-126); Anion Gap 7 mmol/L; Blood Urea Nitrogen 8 mg/dL (7-17); Calcium 9.2 mg/dL (8.4-10.2); Carbon Dioxide 25 mmol/L (22-30); Chloride 108 mmol/L (98-107); Glucose 92 mg/dL (74-99); Non-African American GFR(CKD) >90 (>60 ml/min/1.73 sqM); Potassium 4.4 mmol/L (3.5-5.1); Sodium 140 mmol/L (137-145); Total Bilirubin 0.4 mg/dL (0.2-1.3)
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
--- NOTE | 2020-05-20 12:40 | US ---
EXAMINATION TYPE: US transvaginal DATE OF EXAM: 05/20/2020 COMPARISON: Pelvic ultrasound 2 weeks ago CLINICAL HISTORY: left lower pelvic pain. Left pelvic pain, tubal ligation TECHNIQUE: Transvaginal (TV). Date of LMP: 05/17/20 EXAM MEASUREMENTS: Uterus: 9.0 x 3.6 x 5.9 cm Endometrial Stripe: 0.2 cm Right Ovary: 2.2 x 1.7 x 1.4 cm Left Ovary: 2.7 x 2.0 x 1.8 cm 1. Uterus: Anteverted 2. Endometrium: fluid within 3. Right Ovary: wnl 4. Left Ovary: wnl Spectral, color and waveform doppler imaging shows good arterial and venous flow within the ovaries ; . 5. Bilateral Adnexa: appears wnl 6. Posterior cul-de-sac: wnl Transvaginal pelvic ultrasound shows improved visualization of the uterus. Tiny amount of fluid in en dometrial canal. Endometrial stripe smaller versus prior likely reflecting product of interval menses . Small peripheral follicles seen better on prior ultrasound. No new adnexal mass. IMPRESSION: No new or suspicious acute findings.
--- NOTE | 2020-05-20 13:13 | CT ---
EXAMINATION TYPE: CT abdomen pelvis w con DATE OF EXAM: 05/20/2020 HISTORY: LLQ pain CT DLP: 627.5mGycm Automated Exposure Control for Dose Reduction was Utilized. CONTRAST: CT scan of the abdomen and pelvis is performed without oral but with IV Contrast, patient injected wi th 100 mL of Isovue 300. COMPARISON: Pelvic ultrasound earlier today FINDINGS: LUNG BASES: No significant abnormality is appreciated. LIVER/GB: No significant abnormality is appreciated. PANCREAS: No significant abnormality is seen. SPLEEN: No significant abnormality is seen. ADRENALS: No significant abnormality is seen. KIDNEYS: Symmetric cord medullary uptake and excretion without hydronephrosis seen bilaterally. BOWEL: No suspicious small or large bowel dilatation. No diverticulosis or CT evidence for acute div erticulitis. Low-lying cecum into the right pelvis. Incidental normal appearing appendix extending fr om cecum medially seen best on coronal images 38 through 47 area UTERUS/ADNEXA: Anteverted uterus. Tubal ligation clips along the periphery. Likely normal size left o vary in the pelvis axial image 69 corresponding to ultrasound. No suspicious adnexal masses. LYMPH NODES: No greater than 1cm abdominal or pelvic lymph nodes are appreciated. OSSEOUS STRUCTURES: Incidental 6 lumbar type vertebra. OTHER: No significant additional abnormality is seen. IMPRESSION: No significant acute finding is seen to account for patient's clinical symptoms of left l ower quadrant and pelvic pain.
[2020-05-20 13:26] VITALS: BP 114/68; PULSE 61; RESP 16
== END 2020-05-20 13:26 | disposition home or self-care (01) ==
LOC: EC 11:28
DX: G89.29 Other chronic pain (principal); R10.2 Pelvic and perineal pain; R10.32 Left lower quadrant pain; J45.909 Unspecified asthma, uncomplicated; F17.200 Nicotine dependence, unspecified, uncomplicated; F41.9 Anxiety disorder, unspecified; Z79.51 Long term (current) use of inhaled steroids; Z79.899 Other long term (current) drug therapy; Z79.3 Long term (current) use of hormonal contraceptives; Z88.2 Allergy status to sulfonamides; Z88.1 Allergy status to other antibiotic agents; Z98.51 Tubal ligation status
CPT/HCPCS: 36415; 80053; 85025; 81001; 81025; 93975; 76830; 74177; 99284; Q9967

== ENCOUNTER 2021-10-03 11:33 | Emergency (ER) | payer OTHER ==
[2021-10-03] MEDS ORDERED: DEXAMETHASONE SOD PHOSPHATE 10 MG/ML 1 ML VIAL IM STA (13:06)
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
[2021-10-03 13:28] VITALS: BP 127/78; PULSE 78; RESP 16; TEMP 97.8
== END 2021-10-03 13:27 | disposition home or self-care (01) ==
LOC: EC 11:33
DX: J06.9 Acute upper respiratory infection, unspecified (principal); J45.909 Unspecified asthma, uncomplicated; M19.90 Unspecified osteoarthritis, unspecified site; F41.9 Anxiety disorder, unspecified; F17.200 Nicotine dependence, unspecified, uncomplicated; Z79.51 Long term (current) use of inhaled steroids
CPT/HCPCS: 87635; 99283; 96372; J1100

== ENCOUNTER 2022-05-22 13:36 | Emergency (ER) | payer OTHER ==
[2022-05-22 14:07] VITALS: BP 111/62; PULSE 95; RESP 16; TEMP 98.3
[2022-05-22] MEDS ORDERED: KETOROLAC 15 MG/ML 1 ML VIAL IM STA (14:17)
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
[2022-05-22] MEDS ORDERED: ACETAMINOPHEN TAB 500 MG TAB PO STA (15:58)
== END 2022-05-22 16:08 | disposition home or self-care (01) ==
LOC: EC 13:36
DX: M79.631 Pain in right forearm (principal); J45.909 Unspecified asthma, uncomplicated; M19.90 Unspecified osteoarthritis, unspecified site; F41.9 Anxiety disorder, unspecified; F17.200 Nicotine dependence, unspecified, uncomplicated; Z88.2 Allergy status to sulfonamides; Z79.51 Long term (current) use of inhaled steroids; V49.50XA Passenger injured in collision with unspecified motor vehicles in traffic accident, initial encounter
CPT/HCPCS: 73030; 73080; 73090; 72125; 70450; 99284; 96372; J1885

== ENCOUNTER 2023-06-10 19:28 | Emergency (ER) | payer OTHER ==
[2023-06-10 19:45] VITALS: TEMP 98
[2023-06-10] MEDS ORDERED: HYDROcodone/APAP 5-325MG 1 EACH TAB PO STA (20:25)
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
[2023-06-10 20:57] VITALS: BP 124/78; PULSE 90; RESP 19
== END 2023-06-10 20:57 | disposition home or self-care (01) ==
LOC: EC 19:28
DX: S09.90XA Unspecified injury of head, initial encounter (principal); J45.909 Unspecified asthma, uncomplicated; F41.9 Anxiety disorder, unspecified; F17.290 Nicotine dependence, other tobacco product, uncomplicated; F12.90 Cannabis use, unspecified, uncomplicated; Z79.899 Other long term (current) drug therapy; Z88.2 Allergy status to sulfonamides; Z88.1 Allergy status to other antibiotic agents; W22.01XA Walked into wall, initial encounter
CPT/HCPCS: 99283

== ENCOUNTER 2023-09-01 11:51 | Emergency (ER) | payer OTHER ==
[2023-09-01 12:10] VITALS: TEMP 98.2
[2023-09-01] MEDS ORDERED: KETOROLAC 15 MG/ML 1 ML VIAL IVP STA (12:48)
[2023-09-01] MEDS ORDERED: SODIUM CHLORIDE 0.9% 1,000 ML IV STA ×2 (12:48)
[2023-09-01] MEDS ORDERED: ONDANSETRON 4 MG/2 ML VIAL IVP STA (12:48)
[2023-09-01 13:11] LABS: Basophils % (A) 0 %; Eosinophils # (A) 0.2 k/uL (0-0.7); Eosinophils % (A) 2 %; HCT 40.1 % (34.0-46.0); HGB 13.6 gm/dL (11.4-16.0); Lymphocytes # (A) 1.2 k/uL (1.0-4.8); Lymphocytes % (A) 16 %; MCH 32.5 pg (25.0-35.0); MCHC 33.9 g/dL (31.0-37.0); MCV 95.8 fL (80.0-100.0); Mean Platelet Volume 8.1; Monocytes # (A) 0.4 k/uL (0-1.0); Monocytes % (A) 5 %; Neutrophils # (A) 5.7 k/uL (1.3-7.7); Neutrophils % (A) 76 %; Platelet Count 189 k/uL (150-450); RBC 4.18 m/uL (3.80-5.40); RDW 11.6 % (11.5-15.5); WBC 7.5 k/uL (3.8-10.6)
[2023-09-01 13:22] LABS: ALT 13 U/L (4-34); AST 22 U/L (14-36); African American GFR (CKD) >90 (>60 ml/min/1.73 sqM); Albumin 4.1 g/dL (3.5-5.0); Alkaline Phosphatase 62 U/L (38-126); Amylase 79 U/L (30-110); Anion Gap 8 mmol/L; Blood Urea Nitrogen 10 mg/dL (7-17); Calcium 9.1 mg/dL (8.4-10.2); Carbon Dioxide 25 mmol/L (22-30); Chloride 107 mmol/L (98-107); Glucose 83 mg/dL (74-99); Lipase 67 U/L (23-300); Non-African American GFR(CKD) >90 (>60 ml/min/1.73 sqM); Potassium 3.9 mmol/L (3.5-5.1); Sodium 140 mmol/L (137-145); Total Bilirubin 0.7 mg/dL (0.2-1.3); Total Protein 6.6 g/dL (6.3-8.2)
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
[2023-09-01 14:04] LABS: Appearance,Urine Clear (Clear); Bilirubin,Urine Negative (Negative); Blood,Urine Negative (Negative); Color,Urine Yellow; Glucose,Urine (UA) Negative (Negative); Ketones,Urine Negative (Negative); Leukocyte Esterase,Urine Negative (Negative); Nitrite,Urine Negative (Negative); Protein,Urine Negative (Negative); Specific Gravity,Urine 1.023 (1.001-1.035); Urobilinogen,Urine <2.0 mg/dL (<2.0)
--- NOTE | 2023-09-01 15:26 | CT ---
EXAMINATION TYPE: CT abdomen pelvis w con DATE OF EXAM: 09/01/2023 COMPARISON: 05/20/2020 HISTORY: Lower abdominal pain, n/v. Dizziness. CT DLP: 445.3 mGycm Automated exposure control for dose reduction was used. TECHNIQUE: Helical acquisition of images was performed from the lung bases through the pelvis. CONTRAST: Performed without Oral Contrast and with IV Contrast, patient injected with 100 ml mL of Isovue 300. FINDINGS: The lung bases are clear. There is multiple gallstones but no gallbladder distention, wall thickening or pericholecystic fluid. There is no biliary ductal dilatation. There is no focal mass or organomegaly involving the liver, pancreas, spleen or adrenal glands. The caliber of the abdominal aorta is normal. The bowel loops are normal in caliber is no dilatation or obstruction. No inflammatory changes identi fied in the bowel wall or mesentery and there is no air. There is small moderate free fluid within th e cul-de-sac. There is no pelvic mass, abscess or adenopathy. The osseous structures are intact. IMPRESSION: 1. Cholelithiasis. 2. Small moderate free fluid within the cul-de-sac of the pelvis. 3. No other significant abnormality seen.
[2023-09-01] MEDS ORDERED: IBUPROFEN 600 MG STARTER PACK 4 TAB BTL PO STA (15:54)
[2023-09-01] MEDS ORDERED: ONDANSETRON 4 MG ODT STARTER PACK 2 TAB BTL PO STA (15:54)
[2023-09-01] MEDS ORDERED: ACET/COD 300 MG/30 MG STARTER PACK 6 TAB BTL PO STA (15:54)
[2023-09-01] MEDS ORDERED: MORPHINE SULFATE 4 MG/ML SYRINGE IVP STA (15:54)
[2023-09-01 19:44] VITALS: BP 107/69; PULSE 71; RESP 17
== END 2023-09-01 16:10 | disposition home or self-care (01) ==
LOC: EC 11:51
DX: R10.30 Lower abdominal pain, unspecified (principal); J45.909 Unspecified asthma, uncomplicated; F41.9 Anxiety disorder, unspecified; F17.290 Nicotine dependence, other tobacco product, uncomplicated; F12.90 Cannabis use, unspecified, uncomplicated; Z79.899 Other long term (current) drug therapy; Z20.822 Contact with and (suspected) exposure to COVID-19; Z88.2 Allergy status to sulfonamides; Z88.1 Allergy status to other antibiotic agents
CPT/HCPCS: 36415; 80053; 82150; 83690; 85025; 81003; 81025; 87636; 74177; 99285; 96374; 96375; 96361 ×2; J2405; J1885; S0119; Q9967

== ENCOUNTER → 2023-09-26 | Outpatient (CLI) | payer OTHER ==
--- NOTE | 2023-09-26 16:48 | US ---
EXAMINATION TYPE: US pelvic complete DATE OF EXAM: 09/26/2023 COMPARISON: NONE CLINICAL INDICATION: Female, 32 years old with history of R10.2 PELVIC AND PERINEAL PAIN; Pelvic pain , ablation 1 year TECHNIQUE: Transabdominal (TA). Date of LMP: unknown EXAM MEASUREMENTS: Uterus: 8.6 x 3.3 x 4.4 cm Endometrial Stripe: 0.3 cm Right Ovary: 3.4 x 1.8 x 3.0 cm Left Ovary: 2.7 x 2.1 x 1.6 cm 1. Uterus: Anteverted 2. Endometrium: anechoic area within = 0.7cm 3. Right Ovary: follicles noted 4. Left Ovary: follicles noted 5. Bilateral Adnexa: small amount of fluid adjacent to right ovary 6. Posterior cul-de-sac: wnl Urinary bladder is sonolucent. Posterior wall is normal. Some minimal free fluid is within the pelvis . This can be physiologic. IMPRESSION: 1. Small anechoic area within the endometrial canal could be a small amount of fluid.
== END | disposition home or self-care (01) ==
LOC: RADUSWWP 15:12
PROVIDERS: ATTEND Family Medicine
DX: R10.2 Pelvic and perineal pain (principal)
CPT/HCPCS: 76856

== ENCOUNTER 2024-03-19 23:57 | Emergency (ER) | payer OTHER ==
[2024-03-20 00:16] VITALS: RESP 18; TEMP 98.7
--- NOTE | 2024-03-20 00:31 | XR ---
EXAMINATION TYPE: XR wrist complete RT DATE OF EXAM: 03/20/2024 CLINICAL HISTORY: Status post fall with pain TECHNIQUE: Frontal, lateral and oblique images of the right wrist are obtained. COMPARISON: None FINDINGS: There is no acute fracture/dislocation evident in the right wrist. The carpal joint spaces are maintained. The overlying soft tissue appears unremarkable. IMPRESSION: There is no acute fracture or dislocation in the right wrist.
[2024-03-20] MEDS: KETOROLAC 15 MG/ML 1 ML VIAL IM STA (01:22)
[2024-03-20] MEDS: HYDROmorphone 0.5 MG/0.5 ML SYRINGE IM STA (01:22)
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
[2024-03-20] MEDS: IBUPROFEN 600 MG STARTER PACK 4 TAB BTL PO STA (01:41)
[2024-03-20 01:46] VITALS: BP 128/71; PULSE 66
== END 2024-03-20 01:45 | disposition home or self-care (01) ==
LOC: EC 23:57
DX: M25.531 Pain in right wrist (principal); F17.290 Nicotine dependence, other tobacco product, uncomplicated; Z88.2 Allergy status to sulfonamides; Z88.8 Allergy status to other drugs, medicaments and biological substances; W01.0XXA Fall on same level from slipping, tripping and stumbling without subsequent striking against object, initial encounter
CPT/HCPCS: 73110; 99283; 96372 ×2; 29125; J1885; J1170

== ENCOUNTER 2024-04-05 18:50 | Emergency (ER) | payer OTHER ==
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
[2024-04-05 19:06] VITALS: TEMP 98.1
--- NOTE | 2024-04-05 20:02 | CT ---
EXAMINATION TYPE: CT abdomen pelvis wo con DATE OF EXAM: 04/05/2024 COMPARISON: 09/01/2023 HISTORY: LLQ, left flank pain. N/V. CT DLP: 253.1 mGycm Examination of the solid and hollow viscera is limited given the lack of contrast. FINDINGS: LUNG BASES: No evidence for nodule. No evidence for infiltrate. LIVER/GB: Multiple gallstones noted. No space-occupying hepatic lesion. PANCREAS: No pancreatic mass identified. No inflammatory process seen. SPLEEN: No evidence for splenomegaly. No intrasplenic lesions seen. ADRENALS: No adrenal nodules identified. No evidence for thickening. KIDNEYS: No evidence for renal mass. No nephrolithiasis. No hydronephrosis. BOWEL: Appendix has a normal appearance. No evidence of bowel obstruction. No inflammatory process. Lymph nodes: No evidence for adenopathy greater than 1 cm. Abdominal aorta: Atheromatous changes seen. No evidence for aneurysm. Genital organs: No significant abnormality. Other: No significant abnormality. IMPRESSION: 1. No evidence for obstructive uropathy. 2. Cholelithiasis.
[2024-04-05 20:03] LABS: Basophils % (A) 0 %; Eosinophils # (A) 0.2 k/uL (0-0.7); Eosinophils % (A) 1 %; HCT 41.4 % (34.0-46.0); HGB 14.1 gm/dL (11.4-16.0); Lymphocytes # (A) 1.5 k/uL (1.0-4.8); Lymphocytes % (A) 12 %; MCH 32.7 pg (25.0-35.0); MCV 96.2 fL (80.0-100.0); Mean Platelet Volume 8.4; Monocytes # (A) 0.7 k/uL (0-1.0); Monocytes % (A) 6 %; Neutrophils # (A) 9.9 k/uL (1.3-7.7); Neutrophils % (A) 80 %; Platelet Count 197 k/uL (150-450); RDW 11.5 % (11.5-15.5); WBC 12.4 k/uL (3.8-10.6)
[2024-04-05 20:14] LABS: ALT 14 U/L (4-34); AST 25 U/L (14-36); African American GFR (CKD) >90 (>60 ml/min/1.73 sqM); Albumin 4.3 g/dL (3.5-5.0); Alkaline Phosphatase 73 U/L (38-126); Anion Gap 12 mmol/L; Blood Urea Nitrogen 10 mg/dL (7-17); Calcium 9.1 mg/dL (8.4-10.2); Carbon Dioxide 22 mmol/L (22-30); Chloride 105 mmol/L (98-107); Glucose 87 mg/dL (74-99); Non-African American GFR(CKD) >90 (>60 ml/min/1.73 sqM); Potassium 3.3 mmol/L (3.5-5.1); Sodium 139 mmol/L (137-145); Total Protein 6.5 g/dL (6.3-8.2)
[2024-04-05 20:45] LABS: Appearance,Urine Cloudy (Clear); Bacteria,Urine Rare /hpf; Bilirubin,Urine Negative (Negative); Blood,Urine Negative (Negative); Color,Urine Yellow; Glucose,Urine (UA) Negative (Negative); Hyaline Casts,Urine 6 /lpf (0-2); Ketones,Urine 2+ (Negative); Leukocyte Esterase,Urine Large (Negative); Mucus,Urine Many /hpf; Nitrite,Urine Negative (Negative); Protein,Urine 1+ (Negative); RBC,Urine 25 /hpf (0-5); Specific Gravity,Urine 1.028 (1.001-1.035); Squamous Epithelial Cell,Urine 16 /hpf (0-4); WBC,Urine 124 /hpf (0-5)
[2024-04-05 21:57] VITALS: BP 103/67; PULSE 69; RESP 18
[2024-04-05] MEDS: cefTRIAXone 1,000 MG VIAL (IM USE) IM STA (21:57)
[2024-04-05] MEDS: KETOROLAC 15 MG/ML 1 ML VIAL IM STA (22:03)
== END 2024-04-05 22:15 | disposition home or self-care (01) ==
LOC: EC 18:50
DX: N39.0 Urinary tract infection, site not specified (principal); F17.290 Nicotine dependence, other tobacco product, uncomplicated; Z88.2 Allergy status to sulfonamides
CPT/HCPCS: 36415; 80053; 85025; 81001; 81025; 74176; 99284; 96372 ×2; J0696; J1885

== ENCOUNTER 2024-06-26 11:54 | Emergency (ER) | payer OTHER ==
[2024-06-26 12:02] VITALS: BP 112/65; PULSE 65; RESP 20; TEMP 97.8
[2024-06-26] MEDS ORDERED: HYDROmorphone 1 MG/ML 1 ML SYRINGE IVP STA (12:53)
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
== END 2024-06-26 13:42 | disposition left against medical advice (07) ==
LOC: EC 11:54
DX: R07.89 Other chest pain (principal); F17.290 Nicotine dependence, other tobacco product, uncomplicated; Z88.1 Allergy status to other antibiotic agents; Z88.2 Allergy status to sulfonamides
CPT/HCPCS: 93005; 99284

== ENCOUNTER → 2024-07-02 | Day surgery (SDC) | payer OTHER ==
[~2024-07-02] MED LIST changes: +LIDOCAINE 1% INJ 10MG/ML (20 ML MDV) ONE; +MIDAZOLAM 2 MG/2 ML VIAL ONE; +PROPOFOL 10 MG/ML 20 ML VIAL IV ONE; -Pre Op ABX Message 1 EACH MISC MISCELLANE ONE; +fentaNYL (PF) 50 MCG/ML 2 ML AMP ONE
[2024-07-02 09:24] VITALS: TEMP 97.1
[2024-07-02] MEDS: LACTATED RINGERS 1,000 ML IV SCH (09:41)
[2024-07-02] MEDS: IV FLUID CONTINUATION 1,000 ML IV ONE (09:42)
--- NOTE | 2024-07-02 10:04 | P.PCN ---
Date of Procedure: 07/02/24 Procedure(s) Performed: BRIEF HISTORY: Patient is a 32-year-old, pleasant, white female scheduled for an upper endoscopy as a part evaluation of intermittent episodes of nausea, left upper quadrant abdominal pain and weight loss of 25 pounds in the last 1 year duration.. PROCEDURE PERFORMED: Esophagogastroduodenoscopy with biopsy PREOPERATIVE DIAGNOSIS: Abdominal pain, nausea, weight loss. IV sedation per anesthesia. PROCEDURE: After informed consent was obtained, the patient was brought into [facility] endoscopy unit. IV sedation was administered by Anesthesia under continuous monitoring. Initially the Olympus GIF-140 video endoscope was inserted into the mouth. Esophagus intubated without any difficulty. It was gradually advanced into the stomach and duodenum and carefully examined. The bulb and the second part of the duodenum appeared normal. Biopsies were done from the duodenum to evaluate for celiac disease. The scope at this time was withdrawn to the stomach, adequately insufflated with air, and upon careful examination, mucosa of the antrum, had patchy areas of erythema consistent with gastritis and biopsies were done from this area. Mucosa of the body, cardia and the fundus appeared normal. The scope was then withdrawn into the esophagus. The GE junction was located at 39 cm from the incisors. The esophagus appeared normal. There were no erosions or ulcerations seen, biopsies were done from the distal esophagus and the patient tolerated the procedure well. IMPRESSION: 1. Mild antral gastritis. 2. No evidence of esophagitis or peptic ulcer disease. RECOMMENDATIONS: The findings of this examination were discussed with the patient as well as her family. She was advised to follow-up with the biopsy results. Follow-up in office in 3 to 4 weeks..
[2024-07-02 10:29] VITALS: BP 102/67; PULSE 68; RESP 14
== END ==
LOC: ORWHC2ENDO 08:55
PROVIDERS: ATTEND Internal Medicine Gastroenterology
DX: K29.50 Unspecified chronic gastritis without bleeding (principal); K20.90 Esophagitis, unspecified without bleeding; J45.909 Unspecified asthma, uncomplicated; M19.90 Unspecified osteoarthritis, unspecified site; F41.9 Anxiety disorder, unspecified; F17.290 Nicotine dependence, other tobacco product, uncomplicated; Z79.899 Other long term (current) drug therapy; Z98.890 Other specified postprocedural states
CPT/HCPCS: 81025; 88305; 43239; J2250; J2001; J3010; J2704

== ENCOUNTER → 2025-04-09 | Outpatient (CLI) | payer OTHER ==
--- NOTE | 2025-04-09 21:22 | US ---
EXAMINATION TYPE: US pelvis complete transvag DATE OF EXAM: 04/09/2025 COMPARISON: CT & US 09/26/2023 CLINICAL INDICATION: Female, 34 years old with history of N93.9 ABN VAGINAL BLEEDING; Pt states pelvi c pain, and spotting first time in 7 years since ablation TECHNIQUE: Transvaginal (TV) and Transabdominal (TA) . Transabdominal grayscale sonographic images of the pelvis were acquired. Transvaginal sonographic im ages were medically necessary to better assess the following anatomy: Entire pelvis Doppler imaging: Not performed. FINDINGS: Date of LMP: 7 years ago due to ablation EXAM MEASUREMENTS: Uterus: 7.4 x 3.5 x 5.1 cm Endometrial Stripe: 0.5 cm Right Ovary: 2.6 x 2.5 x 2.3 cm Left Ovary: 3.3 x 2.0 x 2.1 cm 1. Uterus: Anteverted Heterogeneous, prominent vessels within periphery of uterus 2. Endometrium: Cystic area at fundus as visualized on prior= 0.8 x 0.4 x 0.6 cm 3. Right Ovary: wnl 4. Left Ovary: wnl 5. Bilateral Adnexa: Prominent vessels bilateral adnexa 6. Posterior cul-de-sac: wnl IMPRESSION: 1. Appears to be a cyst in the endometrium of the fundus. O-RADS 2021 [email or web address] [email or web address], , 04/09/2025 9:19 PM
== END | disposition home or self-care (01) ==
LOC: RADUSWWP 15:28
PROVIDERS: ATTEND Student in an Organized Health Care Education/Training Program
DX: N93.9 Abnormal uterine and vaginal bleeding, unspecified (principal)
CPT/HCPCS: 76830; 76856